=== PATIENT | female | born 1965 | race Caucasian/White ===

== ENCOUNTER → 2024-10-14 08:47 | Outpatient (REF) | payer OTHER, SELFPAY | LOC: WDC 08:47 | PROVIDERS: ATTENDING PHYSICIAN Obstetrics & Gynecology | DX: R92.8 Other abnormal and inconclusive findings on diagnostic imaging of breast (principal) | CPT/HCPCS: 76642; 77062; 77066 ==

== ENCOUNTER → 2024-10-23 06:42 | Outpatient (REF) | payer OTHER, SELFPAY ==
--- NOTE | 2024-10-23 09:09 | OID.BR.INTR ---
[facility] - Initial
- -
Date of Contact: 10/23/24
Met with patient. Patient given written information on navigator service available at [facility]. Will follow up as needed per protocol.
== END ==
LOC: WDC 06:42
PROVIDERS: ATTENDING PHYSICIAN Obstetrics & Gynecology
DX: R92.1 Mammographic calcification found on diagnostic imaging of breast (principal)
CPT/HCPCS: 19081; 76098; 88305; A4648